=== PATIENT | female | born 1985 | race Caucasian/White ===

== ENCOUNTER 2024-12-11 12:49 | Outpatient (CLI) | payer OTHER, SELFPAY ==
--- NOTE | ~2024-12-11 | MMUS_ITS ---
EXAMINATION: MM diagnostic altagracia BI w roya, US breast BI limited INDICATION: 39-year old female; presents for evaluation of palpable lump in the lateral right breast. COMPARISON: None TECHNIQUE: Digital breast tomosynthesis True lateral and spot compression of the BILATERAL breast wer e obtained with computer-aided detection to assist in interpretation of the study. A radiopaque marke r was placed over the palpable lump in the right breast. FINDINGS: The breasts are extremely dense, which lowers the sensitivity of mammography. There is an area of architectural distortion that persisted on spot compression views in the axillary tail of the right breast that correlates to the radiopaque skin marker. In addition, there is skin t hickening in the inferior medial right breast There is an area of architectural distortion that persisted on spot compression views in the superior slightly medial at posterior depth within the left breast. No other suspicious abnormality is seen in the rest of the breasts. BILATERAL BREAST ULTRASOUND FINDINGS: Targeted evaluation of the palpable lump area in the right breast and superior inner left breast was completed. Right breast: There is an area of dense breast tissue identified at 10:00 location. No definite suspi cious sonographic correlate to the mammographic finding is seen. There is a 0.9 cm simple cyst identi fied in the subareolar, 9:00 location. Left breast: There is no definite sonographic correlate to the area of architectural distortion seen on the mammogram. There are multiple cysts identified in the left breast the largest of which is loca bree in subareolar location and measures 1.8 cm in maximum diameter. IMPRESSION: 1. Suspicious area of architectural distortion in the axillary tail of the right breast that correla carmenza to the palpable lump. There is no sonographic correlate to this abnormality. Recommend biopsy und er stereotactic guidance. 2. Suspicious area of architectural distortion in the left breast superior slightly medial with no so nographic correlate. Biopsy is recommended under stereotactic guidance. RECOMMENDATION: Stereotactic core needle biopsy of right breast suspicious lesion in the axillary tail. Stereotactic core needle biopsy of left breast suspicious lesion in superior medial location BI-RADS 4, SUSPICIOUS Reviewed, dictated and finalized at location B. IMPRESSION: 1. Suspicious area of architectural distortion in the axillary tail of the rig ht breast that correlates to the palpable lump. There is no sonographic correla te to this abnormality. Recommend biopsy under stereotactic guidance. 2. Suspicious area of architectural distortion in the left breast superior slig htly medial with no sonographic correlate. Biopsy is recommended under stereota ctic guidance. RECOMMENDATION: Stereotactic core needle biopsy of right breast suspicious lesion in the axilla ry tail. Stereotactic core needle biopsy of left breast suspicious lesion in superior me dial location BI-RADS 4, SUSPICIOUS
--- OUTSIDE RECORDS SUMMARY | 2024-12-11 12:55 | XMS_ITS | Clinical Summary ---
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 This disclosure is being madepursuant to the Care Everywhere program and may not contain all information available regarding this patient. Last updated 18.[facility] Allergies No known active allergies Medications * Be aware that medications may not be up to date on this document. Alwaysverify current medications with the patient. Cetirizine HCl (ZYRTEC PO) Active Levonorgestrel (MIRENA, 52 MG, IU) Active escitalopram (LEXAPRO) 10 MG tablet Take 10 mg by mouth once daily Active Family History Medical History Relation Name Comments COPD - Chronic Obstructive Pulmonary Disease Father Cancer - Skin, Non Melanoma Mother Relation Name Status Comments Father Mother Social History Tobacco Use Types Packs/Day Years Used Date Smoking Tobacco: Former Cigarettes Q uit: 2013 Smokeless Tobacco: Never Tobacco Cessation:Counseling Given: Yes Comments:now smokes e-cig Comments No Sex and Gender Information Value Date Recorded Sex Assigned at Not on file 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 Gender Identity Not on file Sexual Orientation Not on file Last Filed Vital Signs Vital Sign Reading Time Taken Comments Blood Pressure 108/72 11/23/2017 9:00 AM CDT Pulse 85 11/23/2017 9:00 AM CDT Temperature 36.9 C (98.5 F) 11/23/2017 9:00 AM CDT Respiratory Rate 16 11/23/2017 9:00 AM CDT Oxygen Saturation 94% 11/23/2017 9:00 AM CDT Inhaled Oxygen Concentration - - Weight 68.9 kg (152 lb) 11/23/2017 9:00 AM CDT Height 162.6 cm (5' 4) 11/23/2017 9:00 AM CDT Body Mass Index 26.09 11/23/2017 9:00 AM CDT Plan of Treatment Health Maintenance Due Date Last Done Comments LIPID TESTING 1983 MAMMOGRAM 1983 HIV SCREENING 1998 HEPATITIS C SCREENING 04/23/2001 DTAP/TDAP/TD VACCINES (1 - Tdap) 2002 HEPATITIS B VACCINE (1 of 3 - 19+ 3-dose series) 2002 HPV VACCINE (1 - 3-dose SCDM series) 2010 COVID-19 VACCINE (1 - 2023-2 5 season) 2024 DEPRESSION SCREENING 05/08/2024 INFLUENZA VACCINE (#1) 2025 ZOSTER VACCINE (1 of 2) 2033 HIB VACCINE Aged Out No longer eligi ble based on patient's age to complete this topic MENINGOCOCCAL (Group B) VACC INE SHARED DECISION-MAKING Aged Out No longer eligibl e based on patient's age to complete this topic MENINGOCOCCAL GROUPS A/C/Y/W VACCINE Aged Out No longer eligible b ased on patient's age to complete this topic PNEUMOCOCCAL VACCINE Aged Out No long er eligible based on patient's age to complete this topic Insurance [facility] Care Teams Loom Operator Apprentice Relationship Specialty Start Date End Date Monica Schwartz MD [address] [place], [place] [id number] PCP - General Family Medicine 03/28/16
== END 2024-12-11 12:50 | disposition home or self-care (01) ==
LOC: ANHIMG 12:50
PROVIDERS: PCP Family Medicine; Visit Provider Student in an Organized Health Care Education/Training Program
DX: N63.10 Unspecified lump in the right breast, unspecified quadrant (principal); R92.8 Other abnormal and inconclusive findings on diagnostic imaging of breast
CPT/HCPCS: 76642; 77062; 77066; G0279